=== PATIENT | female | born 1980 | race Caucasian/White ===

== ENCOUNTER 2017-12-26 14:27 | Emergency (ER) | payer MEDICAID | END 2017-12-26 17:12 | disposition home or self-care (01) | LOC: FTE 14:27 | DX: R07.9 Chest pain, unspecified (principal); R05 Cough; Z77.098 Contact with and (suspected) exposure to other hazardous, chiefly nonmedicinal, chemicals | CPT/HCPCS: 71045; 81025; 93005; 99284-25 ==

== ENCOUNTER 2018-09-26 23:49 | Emergency (ER) | payer MEDICAID | END 2018-09-27 02:14 | disposition home or self-care (01) | LOC: E/R 23:49 | DX: J20.9 Acute bronchitis, unspecified (principal) | CPT/HCPCS: 99283; Z7502 ==

== ENCOUNTER 2018-10-02 18:23 | Emergency (ER) | payer MEDICAID | END 2018-10-02 20:20 | disposition home or self-care (01) | LOC: FTE 18:23 | DX: R05 Cough (principal) | CPT/HCPCS: 71045; 99283-25 ==